=== PATIENT | male | born 1940 | race Caucasian/White ===

== ENCOUNTER 2017-07-05 14:53 | Day surgery (SDC) | payer MEDICARE ==
[2017-07-05] MEDS ORDERED: Cyclopentolate 1% Opth Drop 2 ML BOT ONE (16:15)
[2017-07-05] MEDS ORDERED: Phenylephrine HCl 2.5% Ophth Soln 5 ML BOT ONE (16:16)
[2017-07-05] MEDS ORDERED: EPINEPHrine 0.3 MG in Ophthalmic Irrigation Solution 500 ML FS SCH (16:43)
[2017-07-05] MEDS ORDERED: Midazolam HCl 2 mg/2 ml Vial ONE (16:59)
[2017-07-05] MEDS ORDERED: Fentanyl 100 MCG/2 ML VIAL ONE (17:04)
[2017-07-05] MEDS ORDERED: Propofol 200 MG/20 ML VIAL ONE (17:16)
--- NOTE | 2017-07-06 06:08 | OP ---
DATE OF PROCEDURE: 07/05/2017 PREOPERATIVE DIAGNOSIS: Aphakia, cataract fragments in the eye following surgery, vitreous opacific ation. PROCEDURES PERFORMED: Pars plana vitrectomy, lensectomy, membrane peel, secondary intraocular lens, left eye. SURGEON: Dr. Julio Cesar Lim. ANESTHESIA: General endotracheal anesthesia. COMPLICATIONS: None. PROCEDURE IN DETAIL: The patient was identified in the preoperative holding area. Appropriate info rmed consent for the planned surgical procedure on the left eye had been obtained. The patient was transported to the operative suite. Appropriate cardiopulmonary monitoring was established. Genera l endotracheal anesthesia was initiated. Local anesthesia was obtained using retrobulbar block. Tr ocars were placed supratemporally, inferotemporally, and supranasally. Infusion line was placed inf erotemporally. Light pipe and vitreous cutter were inserted into the eye. Core of vitrectomy was p erformed. Posterior hyaloid face was elevated using vacuum suction and peeled across the retina usi ng vacuum suction. A 360 laser was placed at the vitreous base using Endolaser delivery device. A 21.5 diopter [id number] intraocular lens was inserted into the eye and the haptics were externalized usin g a double needle technique. The ends of the haptics were flanged using heater cautery. Sclerotomie s were closed with 6-0 plain gut suture. Superior wound was closed with a 10-0 nylon suture. Retro bulbar Kenalog and subconjunctival Ancef were placed. Atropine and antibiotic ointment were placed, and the eye was patched and shielded. The patient was taken to the postoperative recovery unit in good condition having suffered no immediate perioperative complications. DISCHARGE INSTRUCTIONS: The patient was instructed to keep patch and shield on, avoid lifting or be nding, and follow up in the morning with Dr. Lim.
== END 2017-07-05 20:50 | disposition home or self-care (01) ==
LOC: SDC 14:53
PROVIDERS: ATTEND Ophthalmology Retina Specialist
PROC: 085K3ZZ Destruction of Left Lens, Percutaneous Approach (ICD-10-PCS; principal; 2017-07-05)
PROC: 08953ZZ Drainage of Left Vitreous, Percutaneous Approach (ICD-10-PCS; 2017-07-05)
DX: H27.02 Aphakia, left eye (principal); H59.022 Cataract (lens) fragments in eye following cataract surgery, left eye; H43.392 Other vitreous opacities, left eye; Z88.0 Allergy status to penicillin; Z95.1 Presence of aortocoronary bypass graft; Z87.891 Personal history of nicotine dependence
CPT/HCPCS: C1780; J0171; J2250; J2704; J3010